=== PATIENT | male | born 1970 | race Caucasian/White ===

== ENCOUNTER 2019-07-02 14:06 | Emergency (ER) | payer SELFPAY ==
[2019-07-02 14:18] VITALS: BP 106/48; PULSE 49; RESP 18; TEMP 97.8
[2019-07-02] MEDS ORDERED: ceFAZolin 1,000 MG VIAL (IM USE) IM STA (14:18)
[2019-07-02] MEDS ORDERED: DIPH,PERTUS(ACELL)TETVAC-LF 0.5 ML VIAL IM ONE (14:18)
[2019-07-02] MEDS ORDERED: LIDOCAINE 1% INJ 10MG/ML (20 ML MDV) SQ ONE (14:33)
--- NOTE | 2019-07-02 14:46 | ED ---
Wound/Laceration HPI - General Chief Complaint: Wound/Laceration Stated Complaint: Finger Lac Time Seen by Provider: 07/02/19 14:18 Source: patient Mode of arrival: wheelchair Limitations: no limitations - History of Present Illness Initial Comments: 49-year-old male presenting to this department for evaluation of fingertip avulsion. Patient states that he was at work when his finger got caught in a belt. He states that it took off the tip of his finger. Patient states she was unable to find the tip was brought to emergency department for further evaluation. Upon arrival patient's bleeding controlled. Unsure of last tetanus. He states there is tenderness at the tip of the finger. He denies any pain of the proximal digit or hand. Patient denies any pain at the wrist or elbow of the affected extremity. Patient denies any numbness or tingling. Patient denies any other injury. Upon arrival patient appears well signs of acute distress. - Related Data Previous Rx's Medication Instructions Recorded Acetaminophen with Codeine 1 tab PO Q6H PRN 3 Days #12 tab 07/02/19 [Tylenol w/codeine #3] Cephalexin [Keflex] 500 mg PO Q6HR 7 Days #28 cap 07/02/19 Allergies Allergy/AdvReac Type Severity Reaction Status Date / Time No Known Allergies Allergy Verified 07/02/19 14:18 Review of Systems ROS Statement: Those systems with pertinent positive or pertinent negative responses have been documented in the HPI. ROS Other: All systems not noted in ROS Statement are negative. Past Medical History Past Medical History: Atrial Fibrillation History of Any Multi-Drug Resistant Organisms: None Reported Past Surgical History: No Surgical Hx Reported Past Psychological History: No Psychological Hx Reported Smoking Status: Never smoker Past Alcohol Use History: None Reported Past Drug Use History: None Reported General Exam - General Exam Comments Initial Comments: General: The patient is awake and alert, in no distress Eye: Pupils are equal, round and reactive to light, extra-ocular movements are intact. No nystagmus. There is normal conjunctiva bilaterally. No signs of icterus. Cardiovascular: There is a regular rate and rhythm. No murmur, rub or gallop is appreciated. Respiratory: Lungs are clear to auscultation, respirations are non-labored, breath sounds are equal. No wheezes, stridor, rales, or rhonchi. Musculoskeletal: Upon inspection of the digits of the left hand there is gross avulsion of the tip of the left ring finger which appears distal to the DIP joint. Bleeding controlled. No pain to palpation fo the hand, proximal digit wrist, elblow or shoulder of the left UE. Normal ROM at the MCP, PIP joints. Strength 5/5 intact of the MCP, PIP joints. Sensation intact proximal to the injury site. Radial pulses equal bilaterally 2+. Neurological: A&O x 3. CN II-XII intact grossly, There are no obvious motor or sensory deficits. Coordination appears grossly intact. Speech is normal. Skin: Skin is warm and dry and no rashes. Psychiatric: Cooperative, appropriate mood & affect, normal judgment. Limitations: no limitations Course Vital Signs 07/02/19 14:08 Temperature 97.8 F Pulse Rate 49 L Respiratory 18 Rate Blood Pressure 106/48 O2 Sat by Pulse 100 Oximetry Medical Decision Making - Medical Decision Making 49-year-old male presenting for fingertip avulsion. Patient has avulsed finger tip distal to the DIP joint of the left ring finger. No obvious exposure of bone however palpable. Patient neurovascularly intact. No skin flap available for suture. Patient area extensively irrigated cleansed with iodine. Patient given IM cefzol. The importance of return parameters and orthopedic follow-up was discussed a sterile bandage was applied and patient was discharged. I did discuss the case in detail and at length including regards to physical examinat ion findings and imaging studies attending provider prior to patient's discharge he was agreeable to this care plan. Disposition Clinical Impression: Avulsion, finger tip, Closed fracture of tuft of distal phalanx of finger Disposition: HOME SELF-CARE Condition: Good Instructions (If sedation given, give patient instructions): Finger Fracture (ED) Additional Instructions: Please use medication as discussed. Please follow-up with orthopedics in the next 2-3 days. Please return to emergency room if the symptoms increase or worsen or for any other concerns. Prescriptions: Cephalexin [Keflex] 500 mg PO Q6HR 7 Days #28 cap Acetaminophen with Codeine [Tylenol w/codeine #3] 1 tab PO Q6H PRN 3 Days #12 tab PRN Reason: Severe Pain Is patient prescribed a controlled substance at d/c from ED?: Yes When asked, does pt state using other controlled substances?: No If prescribed controlled substance>3 days was MAPS reviewed?: Prescribed <3 Days If opioid is for acute pain is fill amount 7 days or less?: Yes If Rx opioid, was Start Talking consent form obtained?: Yes Referrals: Nonstaff,Physician [REFERRING] - 1-2 days Davy Tolentino MD [STAFF PHYSICIAN] - 1-2 days Time of Disposition: 15:01
--- NOTE | 2019-07-02 14:54 | XR ---
Digit left hand HISTORY: Avulsion, trauma and pain 3 views of the fourth digit left hand There is been traumatic avulsion of the tuft of the fourth digit of the left hand, fracture fragment is present locally, there is associated soft tissue defect. No dislocation or intra-articular involve ment. No radio opaque foreign body. IMPRESSION: Findings compatible with patient's history
== END 2019-07-02 15:46 | disposition home or self-care (01) ==
LOC: EC 14:06
DX: S62.635A Displaced fracture of distal phalanx of left ring finger, initial encounter for closed fracture (principal); S61.315A Laceration without foreign body of left ring finger with damage to nail, initial encounter; Z23 Encounter for immunization; W23.0XXA Caught, crushed, jammed, or pinched between moving objects, initial encounter; Y92.69 Other specified industrial and construction area as the place of occurrence of the external cause; Y99.0 Civilian activity done for income or pay
CPT/HCPCS: 73140; 90715; 99283; 96372; 90471; J0690; J2001